=== PATIENT | female | born 1985 | race Caucasian/White ===

== ENCOUNTER 2017-10-01 23:38 | Emergency (ER) | payer OTHER ==
[~2017-10-01] VITALS: Ht 162.6 cm; Wt 81.6 kg
[~2017-10-01 23:38] MED LIST: CHOL500051; CYAN250013; DICY20TA70 PO; FING0.5C2 PO; MULT1CAP59 PO; NORE1TAB81 PO
[2017-10-01 23:43] VITALS: BP 115/90
--- NOTE | 2017-10-01 23:51 | ER Report ---
History and Physical Time Seen By MD: 23:50 Hx. of Stated Complaint: PATIENT FELL AND HIT HER HEAD, SHE HAS A LACERATION ON THE BACK OF HER HEAD. PATIENT STATES SHE HAS BEEN DRINKING. HPI/ROS CHIEF COMPLAINT: Fall, scalp laceration HISTORY OF PRESENT ILLNESS: 31-year-old female with a history of multiple sclerosis and gait abnormalities admits to drinking alcohol tonight. She fell backwards. She sustained a scalp laceration. She denies neck pain. She denies LOC. She denies nausea or vomiting. Patient states her last tetanus shot was one year ago. Patient denies any other injuries REVIEW OF SYSTEMS: Respiratory: No cough, no dyspnea. Cardiovascular: No chest pain, no palpitations. Gastrointestinal: No vomiting, no abdominal pain. Musculoskeletal: No back pain. Allergies: Coded Allergies: No Known Drug Allergies (Unverified , 10/02/17) Home Meds Reported Medications Multivitamin (MULTIVITAMINS) 1 Each Capsule, 1 EACH PO QDAY, CAPSULE 09/13/16 Norethindrone A-E Estradiol (LOESTRIN) 1 Each Tablet, 1 EACH PO QDAY 09/13/16 Cholecalciferol (Vitamin D3) (Vitamin D) 5,000 Unit Capsule 09/13/16 Cyanocobalamin (Vitamin B-12) (Vitamin B12) 2,500 Mcg Tab.chew, 1000 09/13/16 Dicyclomine Hcl (DICYCLOMINE HCL) 20 Mg Tablet, 20 MG PO 1-2XD 09/13/16 Fingolimod (GILENYA) 0.5 Mg Cap, 0.5 MG PO QDAY, CAP 09/13/16 Reviewed Nurses Notes: Yes Old Medical Records Reviewed: Yes Hx Smoking: No (/ TO 1 PPD FOR 18 YEARS ) Smoking Status: Current: Every Day Smoker Hx Substance Use Disorder: No Hx Alcohol Use: Yes Constitutional Vital Sign - Last 24 Hours 10/01/17 10/01/17 10/01/17 10/02/17 23:41 23:43 23:53 00:08 Temp 98.1 Pulse 95 89 101 Resp 12 B/P (MAP) 115/90 (98) 115/90 Pulse Ox 91 94 92 O2 Delivery Room Air Physical Exam General Appearance: The patient is alert, has no immediate need for airway protection and no current signs of toxicity. Palpation of the head and neck reveal no tenderness or trauma except a focal site with there is a laceration in the right parietal area 2.0 cm in length. There is no depressed skull fragment Eyes: Pupils equal and round no injection. EOMI, PERRLA Respiratory: Chest is non tender, lungs are clear to auscultation. No chest wall tenderness Cardiac: regular rate and rhythm Gastrointestinal: Abdomen is soft and non tender, no masses, bowel sounds normal. Musculoskeletal: Neck: Neck is supple and non tender. Extremities have full range of motion and are non tender. Skin: No rashes or lesions. DIFFERENTIAL DIAGNOSIS: After history and physical exam differential diagnosis was considered for head injury including but not limited to concussion, skull fracture, intraparenchymal contusion, subarachnoid, subdural and epidural hematoma., Scalp laceration Medical Decision Making ED Course/Re-evaluation ED Course Patient was admitted to an examination room. H&P was done. The differential diagnoses was considered. On clinical examination. Patient has no tenderness on aggressive palpation of the cervical spine and scalp. Facial bones intact on palpation. Patient has no chest wall tenderness. There is no evidence of trauma on the extremity examination. Patient's tetanus status is confirmed to be up-to-date. Patient's wound is anesthetized and repaired as noted below. Procedure: Laceration repair. Verbal consent was obtained from the patient. The 2.0 cm laceration on the right parietal scalp was anesthetized in the usual fashion. The wound was scrubbed, draped and explored to its base with a gloved finger. There were no deep structures involved. The wound was repaired with rosetta 3. The wound repair was simple. The procedure was performed by myself. Wound care was discussed, staple removal will be in one week Decision to Disposition Date: Oct 02, 2017 Decision to Disposition Time: 00:15 Depart Departure Latest Vital Signs Vital Signs Date Time Temp Pulse Resp B/P (MAP) Pulse Ox O2 Delivery O2 Flow Rate FiO2 10/02/17 00:08 101 92 10/01/17 23:43 98.1 12 115/90 Room Air Impression: Primary Impression: Head injury Additional Impressions: Scalp laceration History of multiple sclerosis Abnormal gait Alcohol intoxication Condition: Improved Disposition: HOME OR SELF-CARE Referrals: JAMES QUISPE PA-C (PCP) Patient Instructions: Head Injury (ED), Laceration (ED) Additional Instructions: Return to have your rosetta removed in one week or go to your primary care Problem Qualifiers Primary Impression: Head injury Encounter type: initial encounter Qualified Codes: S09.90XA - Unspecified injury of head, initial encounter Additional Impressions: Scalp laceration Encounter type: initial encounter Qualified Codes: S01.01XA - Laceration without foreign body of scalp, initial encounter Alcohol intoxication Complication of substance-induced condition: uncomplicated Qualified Codes: F10.920 - Alcohol use, unspecified with intoxication, uncomplicated LUCRECIA LAUREN DO Oct 01, 2017 23:51
== END 2017-10-02 00:26 | disposition home or self-care (01) ==
LOC: ER 10-02 00:04
DX: S01.01XA Laceration without foreign body of scalp, initial encounter (principal); S09.90XA Unspecified injury of head, initial encounter; F10.920 Alcohol use, unspecified with intoxication, uncomplicated; W18.30XA Fall on same level, unspecified, initial encounter
CPT/HCPCS: 99283

== ENCOUNTER 2018-02-16 19:42 | Emergency (ER) | payer OTHER ==
--- NOTE | 2018-02-16 19:58 | ER Report ---
History and Physical Time Seen By MD: 19:53 HPI/ROS CHIEF COMPLAINT: facial laceration after fall. HISTORY OF PRESENT ILLNESS: This is a 32 year old female. She fell at home. Uncertain what happened. She is intoxicated. She was found by her family. She denies headache, but has face pain, some neck discomfort, and a through and through laceration of the lower lip. She denies vision changes. She denies any other injury or pain. REVIEW OF SYSTEMS: Constitutional: No weakness. Eyes: No visual changes or eye pain. ENT: No dental trauma. Respiratory: No chest wall pain, no shortness of breath. Cardiac: No palpitations. Gastrointestinal: No abdominal pain, no vomiting. Musculoskeletal: As above. Skin: As above. Neurological: As above. Allergies: Coded Allergies: No Known Drug Allergies (Unverified , 10/02/17) Home Meds Active Scripts Amoxicillin/Pot Clav 875-125 Mg Tab (AUGMENTIN 875-125 TABLET) 1 Each Tablet, 1 TAB PO Q12H, #14 TAB 0 Refills Prov:LUKAS GAFFNEY MD 02/16/18 Reported Medications Multivitamin (MULTIVITAMINS) 1 Each Capsule, 1 EACH PO QDAY, CAPSULE 09/13/16 Norethindrone A-E Estradiol (LOESTRIN) 1 Each Tablet, 1 EACH PO QDAY 09/13/16 Cholecalciferol (Vitamin D3) (Vitamin D) 5,000 Unit Capsule 09/13/16 Cyanocobalamin (Vitamin B-12) (Vitamin B12) 2,500 Mcg Tab.chew, 1000 09/13/16 Fingolimod (GILENYA) 0.5 Mg Cap, 0.5 MG PO QDAY, CAP 09/13/16 Discontinued Reported Medications Dicyclomine Hcl (DICYCLOMINE HCL) 20 Mg Tablet, 20 MG PO 1-2XD 09/13/16 Reviewed Nurses Notes: Yes Hx Smoking: No (1/4 TO 1 PPD FOR 18 YEARS ) Smoking Status: Current: Every Day Smoker Hx Substance Use Disorder: No Hx Alcohol Use: Yes Constitutional Vital Sign - Last 24 Hours 02/16/18 02/16/18 02/16/18 02/16/18 19:54 19:55 19:57 20:00 Temp 98.5 Pulse 97 98 Resp 16 B/P (MAP) 122/84 (97) 122/84 123/83 (96) Pulse Ox 93 94 O2 Delivery Room Air 02/16/18 20:12 Pulse 85 Pulse Ox 93 Physical Exam General Appearance: The patient is alert, has no immediate need for airway protection, is intoxicated but cooperative. Eyes: Pupils equal and round, reactive to light, extraocular movements are intact, no injection. ENT: No dental trauma. Lower lip laceration from the inside of the lower lip to the outside skin. Does not involve the [place]. Respiratory: Breath sounds are equal. Cardiac: Regular rate and rhythm. Gastrointestinal: Soft and non tender, there is no evidence of external or internal trauma by exam. Neurological: GCS 15. Alert and oriented x4. No focal deficits. Skin: chin laceration as noted. Musculoskeletal: Head: Atraumatic without scalp tenderness. Neck: The cervical spine is non-tender and there is no pain with active range of motion. Back: There is no thoracic or lumbar spine or paraspinal tenderness. Extremities: Non tender to palpation. Full range of motion of the joints. DIFFERENTIAL DIAGNOSIS: After history and physical exam differential diagnosis was considered for trauma in a fall, and is heavily intoxicated at this time, will check scans of the head, face and c-spine and then plan on repair of the outer lip laceration. Medical Decision Making EKG/Imaging Imaging EXAMINATION: Head CT without intravenous contrast HISTORY: Fall. Facial laceration. Intoxicated. COMPARISON: None. TECHNIQUE: Contiguous axial images were obtained from the skull base to the vertex without intravenous contrast. Sagittal and coronal reformatted images are also submitted. One of the following dose optimization techniques was utilized in the performance of this exam: Automated exposure control; adjustment of the mA and/ or kV according to the patient's size; or use of an iterative reconstruction technique. Specific details can be referenced in the facility's radiology CT exam operational policy. FINDINGS: Brain and intracranial structures: Ventricles, sulci, and cisterns are normal in size. Ramirez-white matter differentiation is maintained. No midline shift, acute hemorrhage, acute infarct, or mass. Calvarium / scalp: Negative. No acute fracture. Skull base / visualized face: Negative. Visualized sinuses / orbits: Negative. IMPRESSION: No acute intracranial abnormality. Report Dictated By: Nilesh Juarez MD at 02/16/2018 9:46 PM EXAMINATION: CT facial bones without IV contrast HISTORY: Fall. Laceration on lip. Intoxicated. COMPARISON: None. TECHNIQUE: Axial images were obtained from the superior aspect of the orbits through the inferior aspect of mandible. Coronal and sagittal reformatted images were obtained from the axial source data. No IV contrast was administered. One of the following dose optimization techniques was utilized in the performance of this exam: Automated exposure control; adjustment of the mA and/ or kV according to the patient's size; or use of an iterative reconstruction technique. Specific details can be referenced in the facility's radiology CT exam operational policy. FINDINGS: Soft Tissues: Negative. Mandible / TMJ: Negative. Maxillae / pterygoid plates: Negative. Zygoma / zygomatic arches: Negative. Orbits: Negative. Nasal bones / nasal septum: Negative. Frontal bones: Negative. Sinuses: Negative. Visualized brain: Negative. IMPRESSION: No evidence of acute facial bone fracture. Report Dictated By: Nilesh Juarez MD at 02/16/2018 9:57 PM EXAMINATION: CT Cervical spine without intravenous contrast HISTORY: Fall. Facial laceration. Intoxicated. COMPARISON: None. TECHNIQUE: Axial images were obtained from the skull base through the upper thoracic spine without IV contrast administration. Coronal and sagittal reformatted images were obtained from the axial source data. One of the following dose optimization techniques was utilized in the performance of this exam: Automated exposure control; adjustment of the mA and/ or kV according to the patient's size; or use of an iterative reconstruction technique. Specific details can be referenced in the facility's radiology CT exam operational policy. FINDINGS: Alignment: Normal. Cranio-cervical junction: Negative. Vertebral bodies: Vertebral body heights are maintained. No acute fracture. Posterior elements: No acute fracture. Hardware: None. Disc Spaces: Small anterior osteophyte at C5-6. Soft tissues: Negative. Visualized upper chest: Negative. IMPRESSION: No acute fracture of the cervical spine. Report Dictated By: Nilesh Juarez MD at 02/16/2018 9:53 PM ED Course/Re-evaluation ED Course Procedure: Laceration Repair Verbal consent from patient and her family after discussing repair options, risks and benefits. Wound cleaned extensively with saline and Hibiclens. Anesthesia: Local 1% lidocaine without epinephrine. Location: Mid chin. Length: 2 cm. Character: Through and through laceration from inside the lip. Wound repair: Running subcuticular 5-0 Prolene. The wound repair was intermediate and performed by myself. Wound care instructions discussed. Sutures need to be removed in 7 days. Augmentin twice a day for 7 days. Decision to Disposition Date: February 16, 2018 Decision to Disposition Time: 21:43 Depart Departure Latest Vital Signs Vital Signs Date Time Temp Pulse Resp B/P (MAP) Pulse Ox O2 Delivery O2 Flow Rate FiO2 02/16/18 20:12 85 93 02/16/18 20:00 123/83 (96) 02/16/18 19:55 98.5 16 Room Air Impression: Primary Impression: Laceration of chin Additional Impression: Intoxication Condition: Improved Disposition: HOME OR SELF-CARE Referrals: JAMES QUISPE PA-C (PCP) New Scripts Amoxicillin/Pot Clav 875-125 Mg Tab (AUGMENTIN 875-125 TABLET) 1 Each Tablet 1 TAB PO Q12H, #14 TAB 0 Refills Prov: LUKAS GAFFNEY MD 02/16/18 Patient Instructions: Alcohol Intoxication (ED), Facial Laceration (ED) Additional Instructions: Wound Care: Wash the wound once a day with soap and water. Dry the wound and apply a small amount of antibiotic ointment with a clean dressing. If the dressing becomes wet or dirty, repeat cleaning and dressing as above. No soaking the wound; no swimming. Stitches need to be removed in 5-7 days. Pain Control: Use Tylenol or ibuprofen for pain. Using and ice pack can help reduce swelling. Antibiotic: Augmentin 875/125 twice a day for 7 days. Problem Qualifiers Primary Impression: Laceration of chin Encounter type: initial encounter Qualified Codes: S01.81XA - Laceration without foreign body of other part of head, initial encounter LUKAS GAFFNEY MD February 16, 2018 19:58
[2018-02-16 20:00] VITALS: BP 123/83
[2018-02-16] MEDS ORDERED: NICOTINE 14 MG/24 HR PATCH TD SCH (20:55)
[2018-02-16] MEDS ORDERED: AMOX/CLAV 875 MG TAB PO ONE (21:45)
[2018-02-16] MEDS ORDERED: AMOX-559 PO (21:45)
--- NOTE | 2018-02-16 21:55 | RADIOLOGY IMAGING REPORT ---
FACILITY: [facility] PATIENT NAME: Anjelica Hidalgo : 1985 MR: [id number] V: [id number] EXAM DATE: ORDERING PHYSICIAN: LUKAS GAFFNEY TECHNOLOGIST: Location: [facility] Patient: Anjelica Hidalgo : 1985 Visit/Account:[id number] Date of Sevice: 02/16/2018 EXAMINATION: Head CT without intravenous contrast HISTORY: Fall. Facial laceration. Intoxicated. COMPARISON: None. TECHNIQUE: Contiguous axial images were obtained from the skull base to the vertex without intraven ous contrast. Sagittal and coronal reformatted images are also submitted. One of the following dose optimization techniques was utilized in the performance of this exam: Autom ated exposure control; adjustment of the mA and/or kV according to the patient's size; or use of an i terative reconstruction technique. Specific details can be referenced in the facility's radiology C T exam operational policy. FINDINGS: Brain and intracranial structures: Ventricles, sulci, and cisterns are normal in size. Ramirez-white ma tter differentiation is maintained. No midline shift, acute hemorrhage, acute infarct, or mass. Calvarium / scalp: Negative. No acute fracture. Skull base / visualized face: Negative. Visualized sinuses / orbits: Negative. IMPRESSION: No acute intracranial abnormality. Report Dictated By: Nilesh Juarez MD at 02/16/2018 9:46 PM Report E-Signed By: Nilesh Juarez MD at 02/16/2018 9:51 PM WSN:[id number]
--- NOTE | 2018-02-16 22:00 | RADIOLOGY IMAGING REPORT ---
FACILITY: [facility] [place] PATIENT NAME: Anjelica Hidalgo : 1985 MR: [id number] V: [id number] EXAM DATE: ORDERING PHYSICIAN: LUKAS GAFFNYE TECHNOLOGIST: Location: [facility] [place] Patient: Anjelica Hidalgo : 1985 Visit/Account:[id number] Date of Sevice: 02/16/2018 EXAMINATION: CT Cervical spine without intravenous contrast HISTORY: Fall. Facial laceration. Intoxicated. COMPARISON: None. TECHNIQUE: Axial images were obtained from the skull base through the upper thoracic spine without I V contrast administration. Coronal and sagittal reformatted images were obtained from the axial [facility] e data. One of the following dose optimization techniques was utilized in the performance of this exam: Autom ated exposure control; adjustment of the mA and/or kV according to the patient's size; or use of an i terative reconstruction technique. Specific details can be referenced in the facility's radiology C T exam operational policy. FINDINGS: Alignment: Normal. Cranio-cervical junction: Negative. Vertebral bodies: Vertebral body heights are maintained. No acute fracture. Posterior elements: No acute fracture. Hardware: None. Disc Spaces: Small anterior osteophyte at C5-6. Soft tissues: Negative. Visualized upper chest: Negative. IMPRESSION: No acute fracture of the cervical spine. Report Dictated By: Nilesh Juarez MD at 02/16/2018 9:53 PM Report E-Signed By: Nilesh Juarez MD at 02/16/2018 9:57 PM WSN:[id number]
--- NOTE | 2018-02-16 22:06 | RADIOLOGY IMAGING REPORT ---
FACILITY: [facility] PATIENT NAME: Anjelica Hidalgo : 1985 MR: [id number] V: [id number] EXAM DATE: ORDERING PHYSICIAN: LUKAS GAFFNEY TECHNOLOGIST: Location: [facility] [place] Patient: Anjelica Hidalgo : 1985 Visit/Account:[id number] Date of Sevice: 02/16/2018 EXAMINATION: CT facial bones without IV contrast HISTORY: Fall. Laceration on lip. Intoxicated. COMPARISON: None. TECHNIQUE: Axial images were obtained from the superior aspect of the orbits through the inferior as pect of mandible. Coronal and sagittal reformatted images were obtained from the axial source data. N o IV contrast was administered. One of the following dose optimization techniques was utilized in the performance of this exam: Autom ated exposure control; adjustment of the mA and/or kV according to the patient's size; or use of an i terative reconstruction technique. Specific details can be referenced in the facility's radiology C T exam operational policy. FINDINGS: Soft Tissues: Negative. Mandible / TMJ: Negative. Maxillae / pterygoid plates: Negative. Zygoma / zygomatic arches: Negative. Orbits: Negative. Nasal bones / nasal septum: Negative. Frontal bones: Negative. Sinuses: Negative. Visualized brain: Negative. IMPRESSION: No evidence of acute facial bone fracture. Report Dictated By: Nilesh Juarez MD at 02/16/2018 9:57 PM Report E-Signed By: Nilesh Juarez MD at 02/16/2018 10:03 PM WSN:[id number]
== END 2018-02-16 21:59 | disposition home or self-care (01) ==
LOC: ER 19:59
DX: S01.81XA Laceration without foreign body of other part of head, initial encounter (principal)
CPT/HCPCS: 70450; 70486; 72125; 99283